=== PATIENT | female | born 1960 | race Caucasian/White ===

== ENCOUNTER 2018-11-04 09:04 | Emergency (ER) | payer BC ==
[~2018-11-04] VITALS: Ht 165.1 cm; Wt 79.5 kg
[~2018-11-04 09:04] MED LIST: HYDR25TA4 PO
[2018-11-04 09:11] VITALS: BP 143/102
[2018-11-04] MEDS ORDERED: ondansetron/PF 4mg/2ml inj IV ONE (09:20)
[2018-11-04] MEDS ORDERED: LORazepam 2 mg/ml vial IV ONE (09:20)
[2018-11-04] MEDS ORDERED: normal saline 1000ML IV soln IVB ONE (09:20)
[2018-11-04] MEDS ORDERED: glucagon, human recombinant 1mg kit IV ONE (09:20)
== END 2018-11-04 10:18 | disposition home or self-care (01) ==
LOC: ER 09:04
DX: T18.128A Food in esophagus causing other injury, initial encounter (principal); I10 Essential (primary) hypertension; Z79.899 Other long term (current) drug therapy; W22.8XXA Striking against or struck by other objects, initial encounter; Y93.89 Activity, other specified; Y92.89 Other specified places as the place of occurrence of the external cause; Y99.8 Other external cause status
CPT/HCPCS: 96374; 96375; 99283; J1610; J2060; J2405; J7030

== ENCOUNTER 2021-08-03 23:58 | Emergency (ER) | payer BC, SELFPAY ==
[~2021-08-03] VITALS: Ht 165.1 cm; Wt 73.2 kg
[2021-08-04] MEDS ORDERED: ibuprofen tablet 400 MG TABLET PO ONE (00:35)
[2021-08-04] MEDS ORDERED: LIDO20SO16 PO (02:00)
[2021-08-04 02:07] VITALS: BP 116/70
== END 2021-08-04 02:09 | disposition home or self-care (01) ==
LOC: ER 23:59
DX: J04.0 Acute laryngitis (principal); Z20.822 Contact with and (suspected) exposure to COVID-19; I10 Essential (primary) hypertension; Z88.8 Allergy status to other drugs, medicaments and biological substances; Z79.899 Other long term (current) drug therapy
CPT/HCPCS: 87081; 87635; 87880; 99283; C9803

== ENCOUNTER 2024-06-05 14:22 | Emergency (ER) | payer BC ==
[~2024-06-05] VITALS: Ht 165.1 cm; Wt 74.2 kg
[~2024-06-05 14:22] MED LIST changes: +LIDO20SO16 PO
[2024-06-05 15:50] LABS: BASOPHILS # (AUTO) 0.1 X10'3 (0-0.2); BASOPHILS % (AUTO) 1.5 % (0-1); EOSINOPHILS # (AUTO) 0.1 X10'3 (0-0.9); EOSINOPHILS % (AUTO) 1.4 % (0-6); HEMATOCRIT 38.6 % (35.0-45.0); HEMOGLOBIN 12.7 g/dl (12.0-16.0); LYMPHOCYTES # (AUTO) 0.8 X10'3 (1.1-4.8); LYMPHOCYTES % (AUTO) 22.7 % (21-51); MEAN CORPUSCULAR HGB CONC 32.9 g/dL (33.0-36.5); MEAN CORPUSCULAR VOLUME 84.9 FL (78-98); MEAN PLATELET VOLUME 7.4 FL (7.4-10.4); MONOCYTES # (AUTO) 0.5 X10'3 (0-0.9); MONOCYTES % (AUTO) 13.9 % (2-12); NEUTROPHILS # (AUTO) 2.3 X10'3 (1.8-7.7); NEUTROPHILS % (AUTO) 60.5 % (42-75); PLATELET COUNT 256 X10'3 (140-440); RED BLOOD COUNT 4.55 X10'6 (4.20-5.60); RED CELL DISTRIBUTION WIDTH 17.2 % (11.5-14.5); WHITE BLOOD COUNT 3.7 X10'3 (4.5-11.0)
[2024-06-05 16:03] LABS: ALANINE AMINOTRANSFERASE 54 U/L (12-78); ALBUMIN 3.9 G/DL (3.4-5.0); ALBUMIN/GLOBULIN RATIO 1.1 (1.1-1.5); ALKALINE PHOSPHATASE 89 IU/L (46-116); AMYLASE 54 U/L (25-115); ANION GAP 7 (8-16); ASPARTATE AMINO TRANSFERASE 52 U/L (10-37); BILIRUBIN,TOTAL 0.4 MG/DL (0.1-1.0); BLOOD UREA NITROGEN 8 MG/DL (7-18); BUN/CREATININE RATIO 12.3 (10.0-20.0); CALCIUM 8.7 MG/DL (8.5-10.1); CHLORIDE 99 MMOL/L (99-107); CREATININE 0.65 MG/DL (0.40-0.90); GLUCOSE 84 MG/DL (70-104); LIPASE 61 U/L (16-77); POTASSIUM 3.1 MMOL/L (3.5-5.1); SODIUM 139 MMOL/L (135-145); TOTAL CARBON DIOXIDE 33.2 MMOL/L (24-32); TOTAL PROTEIN 7.6 G/DL (6.4-8.2); eCRCL 80 ML/MIN; eGFR > 90 ML/MIN
[2024-06-05 16:22] VITALS: TEMP 98.3
[2024-06-05 17:33] LABS: BILIRUBIN,URINE NEGATIVE (Neg); CLARITY,URINE SLIGHTLY CLOUDY (Clear); COLOR,URINE STRAW (Yellow); GLUCOSE, URINE NEGATIVE (Neg); KETONES,URINE NEGATIVE (Neg); LEUKOCYTE ESTERASE ,URINE NEGATIVE (Neg); NITRITES, URINE NEGATIVE (Neg); OCCULT BLOOD,URINE TRACE-INTACT (Neg); PROTEIN,URINE NEGATIVE (Neg)
[2024-06-05 17:47] LABS: SQUAMOUS EPITHELIAL CELL,UR MODERATE /LPF (FEW); UA COLLECTION TYPE CLN CATCH MIDSTREAM
[2024-06-05 17:48] LABS: BACTERIA,URINE NONE SEEN /HPF (Neg); WBC,URINE 0-4 /HPF (0-4)
[2024-06-05 19:26] VITALS: BP 113/84; PULSE 80; RESP 16; O2SAT 80
== END 2024-06-05 19:55 | disposition home or self-care (01) ==
LOC: ER 14:23
DX: R19.5 Other fecal abnormalities (principal); I10 Essential (primary) hypertension; K21.9 Gastro-esophageal reflux disease without esophagitis; Z79.899 Other long term (current) drug therapy; Z88.5 Allergy status to narcotic agent
CPT/HCPCS: 36415; 80053; 81001; 82150; 83690; 85025; 99283